=== PATIENT | male | born 1950 | race Caucasian/White ===

== ENCOUNTER → 2018-05-14 | Outpatient (CLI) | payer MEDICARE, OTHER ==
[~2018-05-14] MED LIST: IOPAMIDOL 370 MG/ML 200 ML INFUS..BTL INJ ONE; SODIUM CHLORIDE 0.9% 50ML 50 ML ONE
[2018-05-14 18:27] LABS: BLOOD UREA NITROGEN 15 mg/dL (7-26); BUN/CREATININE RATIO 17 (6-25); EST GLOMERULAR FILTRATION RATE > 60 ML/MIN (60-)
--- NOTE | 2018-05-14 20:16 | Diagnostic Imaging Report ---
EXAM: CT ABDOMEN W DATE: 05/14/2018 5:30 PM Time stamp on Exam: 1853 hours INDICATION: Epigastric pain, stomach surgery 2 years ago, still having problems COMPARISON: None TECHNIQUE: The abdomen was scanned using a multidetector helical scanner. Coronal and sagittal reformations were obtained. Dose modulation, iterative reconstruction, and/or weight based adjustment of the mA/kV was utilized to reduce the radiation dose to as low as reasonably achievable. Routine protocol performed. IV Contrast: 100 cc Isovue-370 Oral Contrast: Water CTDIvol has been reviewed. It is below the limits set by the Radiation Protocol Committee (RPC). FINDINGS: LOWER THORAX: No consolidations LIVER: Cyst measuring 17 mm in the left lobe of the liver. Additional punctate hypodensities are also likely cysts but too small to measure. BILIARY: The gallbladder is unremarkable. No ductal dilation. SPLEEN: No masses PANCREAS: No masses ADRENALS: No nodules KIDNEYS: Symmetric enhancement. No masses or hydronephrosis. GI TRACT: Surgical changes that would be consistent with provided history of fundoplication. There is a large hiatal hernia with the fundus of the stomach and fundoplication above the diaphragm. VESSELS: Unremarkable PERITONEUM/RETROPERITONEUM: No free air or fluid LYMPH NODES: No lymphadenopathy SOFT TISSUES: Unremarkable BONES: No suspicious bone lesions. IMPRESSION: Surgical changes that would be consistent with provided history of fundoplication. There is a large hiatal hernia with the fundus of the stomach and fundoplication above the diaphragm. Signed by: Dr. Marita Avila M.D. on 05/14/2018 8:13 PM
== END ==
LOC: CT 17:07
PROVIDERS: ATTEND Internal Medicine Gastroenterology
DX: R10.13 Epigastric pain (principal); R14.0 Abdominal distension (gaseous)
CPT/HCPCS: 36415; 74160; 82565; 84520; Q9967